=== PATIENT | male | born 1995 | race Caucasian/White ===

== ENCOUNTER 2024-11-18 14:51 | Emergency (ER) | payer OTHER ==
[~2024-11-18] VITALS: Ht 188 cm; Wt 93.9 kg
[2024-11-18] MEDS ORDERED: AMOX TR-K CLV1 EAC1 PO (15:12)
[2024-11-18] MEDS ORDERED: DIPHTH,PERTUSS(ACELL),TET VAC 0.5 ML SYRINGE IM ONE (15:15)
[2024-11-18 15:37] VITALS: BP 135/94
== END 2024-11-18 15:39 | disposition home or self-care (01) ==
LOC: ED 14:51
DX: S61.250A Open bite of right index finger without damage to nail, initial encounter (principal); S60.511A Abrasion of right hand, initial encounter; W55.01XA Bitten by cat, initial encounter
CPT/HCPCS: 90471; 90715; 99283-25